=== PATIENT | female | born 1975 | race Two or more races ===

== ENCOUNTER → 2022-04-11 | Outpatient (CLI) | payer MEDICAID ==
[2022-04-11 09:52] LABS: Basophils # (auto) 0.1 10 ^3/uL (0-0.2); Basophils % (auto) 0.9 % (0.0-2.0); Eosinophils # (auto) 0.1 10 ^3/uL (0-0.8); Eosinophils % (auto) 1.3 % (0.0-7.0); Hematocrit 38.5 % (36.0-46.0); Hemoglobin 13.3 g/dL (12.2-16.2); Lymphocytes % (auto) 30.6 % (10.0-50.0); Mean Corpuscular Hemoglobin 30.4 pg (28.0-32.0); Mean Corpuscular Hgb Conc. 34.4 g/dL (32.0-36.0); Mean Corpuscular Volume 88.2 fL (80.0-100.0); Monocytes # (auto) 0.5 10 ^3/uL (0-1.3); Monocytes % (auto) 8.1 % (0.0-12.0); Neutrophils # (auto) 3.9 10 ^3/uL (1.6-8.6); Neutrophils % (auto) 59.1 % (37.0-80.0); Nucleated Red Blood Cells % 0.1 %; Red Blood Cells 4.37 10^6/uL (4.0-5.20); Red Cell Distribution Width 14.2 % (11.8-14.3); White Blood Cell 6.6 10^3/uL (4.4-10.8)
[2022-04-11 10:26] LABS: Urine Bacteria FEW /hpf (None Seen); Urine Blood Negative /uL (Negative); Urine Specific Gravity 1.023 (1.001-1.035); Urine WBC 5 /hpf (0 - 5)
[2022-04-11 10:55] LABS: Leuteinizing Hormone 4.4 IU/L
[2022-04-11 10:56] LABS: Follicle Stimulating Hormone 7.6 IU/L (SEE BELOW)
== END | disposition home or self-care (01) ==
LOC: LAB 09:18
PROVIDERS: ATTEND Obstetrics & Gynecology
DX: N39.9 Disorder of urinary system, unspecified (principal); N39.0 Urinary tract infection, site not specified; N93.9 Abnormal uterine and vaginal bleeding, unspecified
CPT/HCPCS: 36415; 81001; 82670; 83001; 83002; 84403; 84443; 85025; 87086

== ENCOUNTER 2024-05-30 06:03 | Day surgery (SDC) | payer BC ==
--- NOTE | 2024-05-27 12:58 | DVHHP ---
ADMIT DATE: 05/30/2024 CHIEF COMPLAINT: Heavy menses. HISTORY OF PRESENT ILLNESS: The patient is a 48-year-old 2, para 2 female, admitted for D and C, hysteroscopy, endometrial ablation. The patient wanted to have the endometrial biopsy done under anesthesia since cervix was stenotic and procedure could not be done in the office. She reports having heavy bleeding for many years. Her ultrasound reveals 8 x 6 x 4 cm sized uterus. She reports anemia. PAST MEDICAL HISTORY: None. PAST SURGICAL HISTORY: Two C-sections. SOCIAL HISTORY: None. FAMILY HISTORY: None. OBSTETRIC AND GYNECOLOGIC HISTORY: Two sections. ALLERGIES: No known drug allergies. REVIEW OF SYSTEMS: Consistent with HPI. PHYSICAL EXAMINATION: VITAL SIGNS: Stable, afebrile. HEENT: Within normal limits. CARDIOVASCULAR: Regular rate and rhythm. LUNGS: Clear to auscultation. BREASTS: Symmetrical. No masses. PELVIC: External genitalia within normal limits. Vagina normal. Cervix grossly normal. Uterus 8 weeks' size. Adnexa nonpalpable. EXTREMITIES: No clubbing, cyanosis or edema. IMPRESSION: * Abnormal uterine bleeding, menorrhagia with anemia. * Cervical stenosis. PLAN: D and C, hysteroscopy, endometrial ablation. Informed consent obtained. Risks, complication of surgery including infection, bleeding, hematoma formation, perforation of uterus, risk of anesthesia discussed with the patient. Options reviewed. All questions answered. The patient fully understands. Failure rate with this procedure discussed with the patient. The patient wishes to proceed with planned procedure. DO FOREST Charles TID: [id number] RECEIPT: [id number]
[~2024-05-30] VITALS: Ht 165.1 cm; Wt 87.5 kg
[2024-05-30] MEDS ORDERED: ceFAZolin 2 GM/D5W50ml 50 ML IV ONE (06:16)
[2024-05-30] MEDS ORDERED: fentaNYL CITRATE 100 MCG/2 ML VL ONE (06:57)
[2024-05-30] MEDS ORDERED: PROPOFOL 10 MG/ML 20 ML IV ONE (06:57)
[2024-05-30] MEDS ORDERED: HYDR-4072 PO (07:15)
[2024-05-30] MEDS ORDERED: ONDANSETRON HCL 4 MG/2 ML VIAL IV PRN (07:15)
[2024-05-30] MEDS ORDERED: LACTATED RINGER'S 1,000 ML IV SCH (07:15)
[2024-05-30] MEDS ORDERED: IBUP-1456 PO (07:15)
[2024-05-30] MEDS ORDERED: ZOFR4T PO (07:15)
[2024-05-30] MEDS ORDERED: CEPH500C PO (07:15)
[2024-05-30] MEDS ORDERED: DexAMETHasone SOD PHOS 10MG/1ML VIAL INJ ONE (07:19)
[2024-05-30] MEDS ORDERED: ONDANSETRON HCL 4 MG/2 ML VIAL ONE (07:19)
[2024-05-30] MEDS ORDERED: ePHEDrine SULFATE 50 MG/ML AMP ONE (07:26)
[2024-05-30 08:01] VITALS: TEMP 97.8; O2SAT 100
[2024-05-30] MEDS ORDERED: HYDROmorphone HCL 2 MG/ML VL/or syr IV PRN (08:15)
[2024-05-30] MEDS ORDERED: ONDANSETRON HCL 4 MG/2 ML VIAL IV ONE (08:15)
[2024-05-30] MEDS ORDERED: MEPERIDINE HCL (25 MG/ML) 1ML VIAL IV PRN (08:15)
[2024-05-30] MEDS ORDERED: ACETAMINOPHEN IV 1000 MG/100ML (10MG/ML) IV PRN (08:15)
[2024-05-30 09:15] VITALS: BP 149/89; PULSE 75; RESP 16; O2SAT 95
--- NOTE | 2024-05-30 14:31 | DVHOP2 ---
Operative Report DATE OF OPERATION: 05/30/24 PREOPERATIVE DIAGNOSES: Abnormal uterine bleeding.severe cervical stenosis POSTOPERATIVE DIAGNOSES: Abnormal uterine bleeding.same SURGEON: Jerardo Maurice D.O. ANESTHESIOLOGIST: sherrill TYPE OF ANESTHESIA : MAC. CONSENT: The patient was informed of the risks and benefits of the procedure. The patient was informed of the risks and benefits of the procedure. These include but are not limited to , complications of anesthesia, postoperative infection, incomplete relief of symptoms, recurrence of symptoms, damage to blood vessels, nerves and tendons, deep venous thrombosis, pulmonary embolism and possible need for repeat surgery in the future. FINDINGS: Cervix is very stenotic. Uterus is 9 weeks size. Adnexa is nonpalpable. Hysteroscopy examination revealed no evidence of polyps or myomas. SPECIMEN: [facility] [place] COMPLICATIONS: None BLOOD PRODUCTS USED: None PROCEDURES: Dilation and curettage, hysteroscopy, and endometrial ablation. PROCEDURE IN DETAIL: The patient was taken to the operating room, where he was placed under MAC anesthesia. She was then prepped and draped in the usual sterile manner in dorsal lithotomy position. Bladder was emptied using a straight catheter. Examination under anesthesia revealed the above findings. A weighted speculum was placed in the vagina. Anterior lip of the cervix was grasped using single tooth tenaculum. Cervix was dilated. Uterus was sounded to 9 cm. Hysteroscope was advanced. Survey of uterine cavity revealed no evidence of polyp or myoma. Hysteroscope was removed. Endometrial carotene was performed. Endometrial ablation procedure was then performed successfully. Post ablation hysteroscopic findings was consistent with excellent ablation of the entire cavity. No bleeding was noted. All the instruments were removed from the vagina and cervix. Patient tolerated procedure well. She was then taken to the recovery room in stable condition. CONDITION: Stable ESTIMATED BLOOD LOSS: 50 mL Visit Coding OBGYN Date of Service: May 30, 2024 Billing Provider: JERARDO MAURICE DO COMMERCIAL LOAN ADMINISTRATOR Common Visit Codes: 17835-[id number] INP/OBS CARE (HIGH) COMMERCIAL LOAN ADMINISTRATOR Procedure Codes: [id number], SURGICAL JERARDO MAURICE DO May 30, 2024 14:31
--- NOTE | 2024-05-30 14:34 | POSTOP ---
Post-Operative Note Post-Operative Note Preop Diagnosis aub,severe cervical stenosis Postop Diagnosis: same Operation performed d and c,hysteroscopy endometrial ablation Specimen emc Anesthesia: Mac Anesthesiologist: nuygen Blood Loss(fluid mgmt) 20ml Surgeon Jerardo Maurice Implant na Complications & Mgmt none Date 05/30/24 Time 14:32 Visit Coding OBGYN Date of Service: May 30, 2024 Billing Provider: JERARDO MAURICE DO ASSISTANT INFANT TODDLER TEACHER Common Visit Codes: [id number] INP/OBS CARE(HIGH) JERARDO MAURICE DO May 30, 2024 14:34
--- NOTE | 2024-05-30 14:35 | DVHDS2 ---
Physician Discharge Progress N Final Diagnosis: aub Operations or Procedures: Operations or Procedures d and c,hysteroscopy endometrial ablation Condition on Discharge: Good Disposition: Home Discharge Instructions: Diet: Regular Activity: Light activity Follow Up/Referral: arturo 9:30 Medications: yessi mcgovern Follow Up Care: Specialist: 1w Discharge Statement: "Patient was advised to return to the ER or call 911 if any headaches, dizziness, shortness of breath, chest pain, abdominal pain, bleeding, fevers, or worsening of medical condition. Patient was counseled about treatment plan, medications, possible side effects, patientverbalized understanding. All questions were answered to the best of my ability. This discharge took greater then 30 minutes in planning, reviewing documentation, counseling the patient, and discussing with other team members." Visit Coding OBGYN Date of Service: May 30, 2024 Billing Provider: JERARDO ESPINOZA DO UNDERCOLLAR BASTER Common Visit Codes: 14279-DBA/OBS DISCH DAY >30MIN UNDERCOLLAR BASTER Procedure Codes: [id number], SURGICAL JERARDO ESPINOZA DO May 30, 2024 14:35
== END 2024-05-30 09:30 | disposition home or self-care (01) ==
LOC: SUR 06:03
PROVIDERS: ATTEND Obstetrics & Gynecology
DX: N93.8 Other specified abnormal uterine and vaginal bleeding (principal); N92.0 Excessive and frequent menstruation with regular cycle; N88.2 Stricture and stenosis of cervix uteri; I10 Essential (primary) hypertension; Z98.891 History of uterine scar from previous surgery; Z98.890 Other specified postprocedural states
CPT/HCPCS: 58563; 88305; J0690; J1100; J2405; J2704; J3010; J7030